=== PATIENT | male | born 1990 | race Caucasian/White ===

== ENCOUNTER 2016-05-22 00:27 | Emergency (ER) | payer SELFPAY ==
[~2016-05-22] VITALS: Ht 182.9 cm; Wt 97.5 kg
[~2016-05-22 00:27] MED LIST: CHLO200T OR; CHLO25CA2 OR; DEPA500T2 OR; EFFE150C OR; NICO21DI4 TD
[2016-05-22 00:44] VITALS: BP 132/79
== END 2016-05-22 06:02 | disposition left against medical advice (07) ==
LOC: M ED 05:52
DX: M54.9 Dorsalgia, unspecified (principal); Z53.29 Procedure and treatment not carried out because of patient's decision for other reasons

== ENCOUNTER → 2017-01-06 | Outpatient (CLI) | payer OTHER ==
--- NOTE | 2017-01-28 01:29 | ECWPNPC ---
PATIENT NAME: NICOLE RAI : 1990 GENDER: MALE VISIT DATE: 01/06/2017 DISCHARGE DATE: 01/06/17 1647 VISIT LOCKED DATE TIME: PHYSICIAN: CURTIS CAVAZOS RESOURCE: CURTIS CAVAZOS REASON FOR APPOINTMENT 1. NECK AND BACK HISTORY OF PRESENT ILLNESS NEW PATIENT CONSULT: WHEN DID YOUR PAIN FIRST START? . BRIEFLY DESCRIBE HOW YOUR PAIN STARTED? . HOW DOES YOUR PAIN CHANGE WITH TIME? . DOES YOUR PAIN AWAKEN YOU FROM SLEEP? . HOW MANY HOURS OF SLEEP DO YOU NORMALLY GET? . ANY DIAGNOSTIC TESTING? . FACILITY WHERE TESTS WERE DONE? ____. PAIN TREATMENT TREATMENT YES CANCER HAVE YOU EVER HAD ANY TYPE OF CANCER?NO NO. 26 YEAR OLD MALE PATIENT WITH HISTORY OF CHRONIC LOW BACK PAIN. PATIENT DESCRIBES THE PAIN SHARP, STABBING, AND HAVING IT ALL THE TIME WITH A PAIN SCORE OF 9/10. PATIENT REPORTS HIS PAIN STARTED IN 2015 WHEN HE BENT OVER AND WAS UNABLE TO STAND UP. AT THIS TIME THE PATIENT HAS NOT FOUND ANYTHING THAT RELIEVES THE PAIN. PATIENT STATES THAT WALKING AND BENDING INCREASES HIS PAIN THE MOST AT THIS TIME. PATIENT HAS TRIED INJECTIONS WELL AT PHYSICAL THERAPY AND STATES THAT IS DOES NOT AID IN PAIN RELIEF AT THIS TIME. PATIENT DENIES UNEXPLAINABLE WEIGHT LOSS, FEVER, CHILLS, NEW CHANGES ON HIS URINARY OR BOWEL CONTROL. PAIN SCREENING: PATIENT HAS A COMPLAINT OF ACUTE OR CHRONIC PAIN :YES FALL RISK SCREENING: SCREENING :NO FALLS IN THE PAST YEAR KUMAR INVENTORY: QUESTIONNAIRE ASSESSEDTBD SCORE VALUE CALCULATED TBD CURRENT MEDICATIONS TAKING CYMBALTA 30 MG CAPSULE DELAYED RELEASE PARTICLES 1 CAPSULE ORALLY DAILY TAKING SINGULAIR 10 MG TABLET 1 TABLET IN THE EVENING ORALLY ONCE A DAY TAKING PRAZOSIN HCL 1 MG CAPSULE 1 CAPSULE AT BEDTIME ORALLY ONCE A DAY TAKING LORATADINE 10 MG TABLET 1 TABLET ORALLY ONCE A DAY TAKING UNISOM SLEEPGELS 50 MG CAPSULE 1 CAPSULE AT BEDTIME NEEDED ORALLY ONCE A DAY MEDICATION LIST REVIEWED AND RECONCILED WITH THE PATIENT PAST MEDICAL HISTORY KIDNEY STONE BACK PAIN HX HIGH CHOLESTEROL CONTROLLED WITH DIET ALLERGIES PENICILLIN (FOR ALLERGIES USE ONLY): SWELLING/HIVES: SIDE EFFECTS RISPERDAL: SEIZURE: ALLERGY PAXIL: SEIZURE: ALLERGY SURGICAL HISTORY [facility]-( KIDNEY STONES) 2010/ FAMILY HISTORY FATHER: ALIVE, KIDNEY STONES, DIAGNOSED WITH HEART DISEASE MOTHER: ALIVE 1 BROTHER(S) , 1 SISTER(S) - HEALTHY. 1DAUGHTER(S) - HEALTHY. SISTER HAS ITP (BLOOD DISORDER). SOCIAL HISTORY GENERAL: TOBACCO USE ARE YOU A:CURRENT SMOKER ARE YOU INTERESTED IN QUITTING?THINKING ABOUT QUITTING DISCUSSING WITH PRIMARY MD COUNSELED THE PATIENT ON SMOKING CESSATION, EDUCATION [id number]/2017 PATIENT COUNSELED ON THE DANGERS OF TOBACCO USE AND URGED TO QUIT:01/06/2017 ALCOHOL SCREENING POINTS1 INTERPRETATIONNEGATIVE RECREATIONAL DRUG USE DRUG USE?NO OCCUPATION: [employer]. DIET: REGULAR. MARITAL STATUS: SINGLE. SIKHISM [id number] NONE LANGUAGE LANGUAGES SPOKEN:IRAQI LEARNING BARRIERS / SPECIAL NEEDS BARRIERS TO LEARNING?NO HEARING IMPAIRED?NO VISION IMPAIRED?NO COGNITIVELY IMPAIRED?NO READINESS TO LEARN?YES LEARNING PREFERENCES?NO LEARNING CAPABILITIES PRESENT?YES EMOTIONAL BARRIERS?NO SPECIAL DEVICES?NO NOTE KEEPER NEEDED?NO PAIN CLINIC PFS, CLERGY, PUBLIC HEALTH REFERRALS PFS REFERRAL NEEDED?NO CLERGY REFERRAL NEEDED?NO PUBLIC HEALTH REFERRAL NEEDED?NO WAS THE PROVIDER NOTIFIED OF ANY PERTINENT INFO?NO HAS THE PATIENT BEEN EDUCATED REGARDING HIS/HER PLAN OF CARE?YES HAS THE PATIENT BEEN EDUCATED REGARDING PAIN, THE RISK FOR PAIN, THE IMPORTANCE OF EFFECTIVE PAIN MANAGEMENT, AND THE PAIN ASSESSMENT PROCESS?YES PATIENT: ____. ADVANCE DIRECTIVES HEALTH CARE PROXY?NO WOULD YOU LIKE MORE INFORMATION?NO DO YOU HAVE A DNR?NO WOULD YOU LIKE MORE INFORMATION?NO LIVING WILL?NO WOULD YOU LIKE MORE INFORMATION?NO POWER OF COMMUNITY HEALTH NURSE?NO WOULD YOU LIKE MORE INFORMATION?NO REVIEW OF SYSTEMS REVIEWED BY: PROVIDER: CURTIS CAVAZOS MD . CONSTITUTIONAL: ANY CHANGE IN YOUR MEDICAL CONDITION? NO . CHILLS NO . FEVER NO . INFECTION: DO YOU HAVE NEW INFECTIONS? NO . DO YOU HAVE HISTORY OF MRSA? NO . MUSCULOSKELETAL: ANY NEW PATTERNS OF PAIN OR NUMBNESS? NO . SYTEMIC LUPUS NO . GASTROENTEROLOGY: ANY NEW CHANGE IN BOWEL CONTROL? NO . BARRETTS ESOPHAGUS NO . CIRRHOSIS NO . HEPATITIS NO . LIVER FAILURE NO . ACID REFLUX NO . UNEXPLAINED WEIGHT LOSS NO . GENITOURINARY: ANY NEW CHANGE IN BLADDER CONTROL? NO . IS THERE A CHANCE YOU COULD BE ? NO . HEMATOLOGY/LYMPH: DO YOU TAKE ANY BLOOD THINNERS? (FOR EXAMPLE- COUMADIN, PLAVIX, AGGRENOX, PLATEL, PRADAXA, OR XARELTO) NO . WHEN WAS YOUR LAST DOSE? DATE: TIME: . LOW PLATELET COUNT NO . SICKLE CELL DISEASE NO . VON WILLIEBRANDS NO . FACTOR V LEIDEN NO . THALLASEMIA NO . ANEMIA NO . EASY BRUISING NO . NEUROLOGY: HAVE YOU FALLEN IN THE PAST 6 MONTHS? NO . ANY NEW EXTREMITY NUMBNESS OR WEAKNESS? NO . HEAD INJURY NO . DEMENTIA NO . CEREBRAL PALSY NO . MULTIPLE SCLEROSIS NO . DIZZINESS NO . HEADACHE NO . STROKES NO . VERTIGO NO . CARDIOLOGY: DO YOU HAVE A PACEMAKER OR DEFIBRILLATOR? NO . ANGINA NO . HEART ATTACK NO . HEART SURGERY NO . CONGESTIVE HEART FAILURE/FLUID OVERLOAD NO . CHEST PAIN NO . HIGH BLOOD PRESSURE NO . IRREGULAR HEART BEAT NO . RESPIRATORY: HAVE YOU BEEN SICK IN THE PAST WEEK? NO . FEVER NO . FLU LIKE SYMPTOMS? NO . CPAP NO . BYPAP NO . ASTHMA NO . EMPHYSEMA NO . CHRONIC LUNG DISEASES NO . SHORTNESS OF BREATH ON EXERTION NO . DO YOU USE ANY TYPE OF TOBACCO (SMOKE, SMOKELESS, CHEW)? NO . COUGH NO . SNORING NO . INTEGUMENTARY: DO YOU HAVE ANY RASHES OR OPEN SORES? NO . ALLERGIC/IMMUNO: ARE YOU ALLERGIC TO SHELLFISH OR IV DYE? NO . ANY NEW ALLERGIES? NO . PSYCHIATRIC: DO YOU HAVE THOUGHTS OF HURTING YOURSELF OR SOMEONE ELSE? NO . ARE YOU ABUSED, NEGLECTED, OR IN AN UNSAFE ENVIRONMENT? NO . ENDOCRINOLOGY: ARE YOU DIABETIC? NO . THYROID DISORDER NO . OTHER: DO YOU NEED ANY PRESCRIPTIONS? NO . IF YES, PLEASE LIST: ____ . ANY NEW PROBLEMS WITH YOUR MEDICATIONS? NO . WHEN DID YOU LAST EAT? ____ . WHEN DID YOU LAST DRINK? ____ . WHAT DID YOU LAST DRINK? ____ . NAME OF PERSON DRIVING YOU HOME? ____ . DO YOU HAVE ANY OTHER QUESTIONS OR CONCERNS NO . VITAL SIGNS WT 214.2 LBS, HT 6', BMI 29.05 INDEX, BP 134/78 MM HG, HR 91 /MIN, RR 18 /MIN, TEMP 98.1 F, OXYGEN SAT % 99%, SAFE IN ENV? (Y/N) YES, NA INITIALS SC 14:07, REVIEWED BY: JUNI. EXAMINATION : PATIENT IS ALERT O X 3 AND COOPERATIVE. PATIENT WALKS IN FLEXED POSITION. TENDERNESS IN THE LOWER BACK AND PARASPINAL MUSCLE GROUP. BANDS OF TISSUE, RESTRICTION OF MOVEMENT AND PRESENCE OF TRIGGER POINTS IN THE LOWER BACK AREA. MRI OF THE LUMBAR SPINE DONE ON 05/09/2015 SHOWS DISC BULGES AT L2-L3 AND L5-S1. LUNGS CLEAR, TO AUSCULTATION. HEART- NO MURMURS OR GALLOPS; FACIAL CRANIAL NERVES ARE GROSSLY NORMAL. GOOD SYMMETRY OF FACIAL MUSCLE MOVEMENT. NORMAL VISUAL LOPEZ. ABDOMINAL SOFT AND DEPRESSIBLE. ASSESSMENTS INTERVERTEBRAL DISC DISORDER WITH RADICULOPATHY OF LUMBAR REGION - M51.16 (PRIMARY) INTERVERTEBRAL DISC DISORDER WITH RADICULOPATHY OF LUMBOSACRAL REGION - M51.17 TREATMENT INTERVERTEBRAL DISC DISORDER WITH RADICULOPATHY OF LUMBAR REGION NOTES: WE DISCUSSED SEVERAL ISSUES WITH MR. RAI'S PAIN MANAGEMENT CASE. AT THIS TIME I WOULD LIKE THE PATIENT TO START USING IBUPROFEN FOR THE INFLAMMATION AND TIZANIDINE FOR THE MUSCLE SPASMS AND TIGHTNESS. PATIENT WAS ADVISED TO USE THE IBUPROFEN WITH FOOD. MR. RAI WAS ADVISED TO STOP THE MEDICATIONS IF HE HAS ANY ADVERSE SIDE EFFECTS. DUE TO THE RADICULAR PAIN AND THE BULGING DISCS I WOULD LIKE THE PATIENT TO RECEIVE A LUMBAR EPIDURAL. WE DISCUSSED THE RISKS, BENENFITS, AND ALTNERATIVES OF THE INJECTION AND THE PATIENT WOULD LIKE TO PROCEED. INSTRUCTIONS WERE GIVEN, QUESTIONS WERE ANSWERED, PATIENT REPORTS UNDERSTANDING AND AGREES WITH THE PLAN. I, RYLEY ARMIJO, DOCUMENTED THE ABOVE INFORMATION ACTING A SCRIBE FOR DR. CAVAZOS. I HAVE REVIEWED THE ABOVE DOCUMENT, WRITTEN BY RYLEY MCDONALD AND I VERIFY THAT IT IS ACCURATE. DEAR DR. AMBRIZ:THANK YOU FOR YOUR KIND REFERRAL OF MR. RAI. IF YOU WANT TO DISCUSS HIS CASE WITH ME PLEASE CALL ME AT THE PAIN CENTER AT [phone]. SINCERELY,CURTIS CAVAZOS, [facility]. OTHERS START IBUPROFEN TABLET, 800 MG, 1 TABLET WITH FOOD OR MILK, ORALLY, EVERY 6 HOURS NEEDED FOR PAIN MDD3, 30 DAY(S), 90, REFILLS 1 START TIZANIDINE HCL TABLET, 2 MG, 1 TABLET NEEDED FOR SPAMSM AND PAIN, ORALLY, BEFORE BEDTIME MAY REPEAT IN 5 HRS MDD2, 30 DAY(S), 50, REFILLS 1 PROCEDURE CODES FA211 ESTABILISHED PATIENT [facility] G7463 DOC MEDS VERIFIED W/PT OR RE G8730 PAIN ASSESS POS TOOL F/U PLAN DOC DISPOSITION & COMMUNICATION FOLLOW UP LESI AFTER APPROVAL ELECTRONICALLY SIGNED BY CURTIS CAVAZOS MD ON 01/26/2017 AT 06:20 PM EST DISCLAIMER : THIS IS A VISIT SUMMARY EXTRACTED FROM THE [employer] CHART. IT IS NOT A COPY OF THE [employer] PROGRESS NOTE. MTDD
== END ==
LOC: M PAIN 14:00
PROVIDERS: ATTEND Anesthesiology
DX: M51.16 Intervertebral disc disorders with radiculopathy, lumbar region (principal); M51.17 Intervertebral disc disorders with radiculopathy, lumbosacral region; G89.29 Other chronic pain; Z79.899 Other long term (current) drug therapy; F17.210 Nicotine dependence, cigarettes, uncomplicated; Z88.0 Allergy status to penicillin; Z88.8 Allergy status to other drugs, medicaments and biological substances

== ENCOUNTER → 2017-02-10 | Outpatient (CLI) | payer OTHER | LOC: M PAIN 15:30 | DX: G89.29 Other chronic pain (principal); M51.16 Intervertebral disc disorders with radiculopathy, lumbar region; M51.17 Intervertebral disc disorders with radiculopathy, lumbosacral region; F17.210 Nicotine dependence, cigarettes, uncomplicated; Z88.0 Allergy status to penicillin; Z88.8 Allergy status to other drugs, medicaments and biological substances; Z79.899 Other long term (current) drug therapy | CPT/HCPCS: G0463 ==

== ENCOUNTER 2017-05-03 11:00 | Emergency (ER) | payer OTHER ==
[2017-05-03] MEDS: KETOROLAC 30 MG/ML VIAL (J1885) IV (11:37)
[2017-05-03] MEDS: NS 1,000 ML IV (11:37)
[2017-05-03 11:54] LABS: BASO % 0.3 % (0.0-1.0); EOS # 0.2 10^3/uL (0.0-0.50); HEMATOCRIT 47.8 % (42.0-52.0); IMMATURE GRANULOCYTE % 0.3 % (0-3.0); LYMPH # 2.6 10^3/uL (1.5-6.5); MEAN CORPUSCULAR HEMOGLOBIN 29.4 pg (27.0-33.0); MEAN CORPUSCULAR HGB CONC 33.5 g/dl (32.0-36.5); MEAN CORPUSCULAR VOLUME 87.9 fl (80.0-96.0); MONO # 0.9 10^3/uL (0.0-0.8); MONO % 9.9 % (0.0-5.0); NEUTROPHILS # 5.3 10^3/uL (1.8-7.7); NEUTROPHILS % 58.5 % (36.0-66.0); PLATELET COUNT, AUTOMATED 237 10^3/uL (150-450); RED BLOOD COUNT 5.44 10^6/uL (4.30-6.10); RED CELL DISTRIBUTION WIDTH 12.9 % (11.5-14.5); WHITE BLOOD COUNT 9.1 10^3/uL (4.0-10.0)
[2017-05-03 11:59] LABS: CALCIUM OXALATE CRYSTALS RFX SMALL; KETONE, URINE AUTO RFX NEGATIVE (NEGATIVE); LEUKOCYTE ESTERASE UR AUTO RFX NEGATIVE (NEGATIVE); MUCUS, URINE RFX SMALL (NEGATIVE); NITRITE, URINE AUTO RFX NEGATIVE (NEGATIVE); RBC, URINE AUTO RFX TNTC /HPF (0-3); SPECIFIC GRAVITY UR AUTO RFX 1.014 (1.002-1.035); SQUAM EPITHELIAL CELL UR AURFX 0 /HPF (0-6)
[2017-05-03 12:00] LABS: WBC, URINE AUTO RFX 11 /HPF (0-3)
[2017-05-03 12:22] LABS: ALBUMIN 4.4 GM/DL (3.2-5.2); ALBUMIN/GLOBULIN RATIO 1.19 (1.00-1.93); ALKALINE PHOSPHATASE 83 U/L (45-117); ALT/SGPT 59 U/L (12-78); ANION GAP 6 MEQ/L (8-16); AST/SGOT 24 U/L (7-37); BILIRUBIN,DIRECT 0.1 MG/DL (0.0-0.2); BILIRUBIN,TOTAL 0.6 MG/DL (0.2-1.0); BLOOD UREA NITROGEN 12 MG/DL (7-18); CALCIUM LEVEL 9.2 MG/DL (8.5-10.1); CARBON DIOXIDE LEVEL 29 MEQ/L (21-32); CHLORIDE LEVEL 108 MEQ/L (98-107); CREATININE FOR GFR 1.02 MG/DL (0.70-1.30); GLOMERULAR FILTRATION RATE > 60.0 (>60); GLUCOSE, FASTING 95 MG/DL (70-100); LIPASE 106 U/L (73-393); POTASSIUM SERUM 4.5 MEQ/L (3.5-5.1); SODIUM LEVEL 143 MEQ/L (136-145); TOTAL PROTEIN 8.1 GM/DL (6.4-8.2)
[2017-05-03] MEDS: TAMSULOSIN 0.4 MG CAP PO (12:31)
[2017-05-03] MEDS: ONDANSETRON 4MG/2ML VIAL (J2405) IV (12:31)
[2017-05-03] MEDS: MORPHINE 4 MG/ML 1ML VIAL (J2270) IV (12:31)
== END 2017-05-03 13:22 | disposition home or self-care (01) ==
LOC: M ED 11:00
DX: N20.1 Calculus of ureter (principal); F17.210 Nicotine dependence, cigarettes, uncomplicated; Z79.899 Other long term (current) drug therapy; Z87.442 Personal history of urinary calculi; Z98.890 Other specified postprocedural states; Z88.8 Allergy status to other drugs, medicaments and biological substances; Z88.0 Allergy status to penicillin
CPT/HCPCS: J2270

== ENCOUNTER → 2017-05-12 | Outpatient (REF) | payer OTHER ==
[2017-05-12 13:32] LABS: APPEARANCE, URINE CLEAR (CLEAR); BACTERIA, URINE AUTO NEGATIVE (NEGATIVE); BILIRUBIN, URINE AUTO NEGATIVE (NEGATIVE); BLOOD, URINE BLOOD 1+ (NEGATIVE); COLOR, URINE COLORLESS (YELLOW); GLUCOSE, URINE (UA) AUTO NEGATIVE (NEGATIVE); KETONE, URINE AUTO NEGATIVE (NEGATIVE); LEUKOCYTE ESTERASE, URINE AUTO NEGATIVE (NEGATIVE); MUCUS, URINE SMALL (NEGATIVE); NITRITE, URINE AUTO NEGATIVE (NEGATIVE); PROTEIN, URINE AUTO NEGATIVE (NEGATIVE); RBC, URINE AUTO 3 /HPF (0-3); SPECIFIC GRAVITY URINE AUTO 1.011 (1.002-1.035); SQUAMOUS EPITHELIAL CELL UR AU 0 /HPF (0-6); UROBILINOGEN, URINE AUTO 0.2 mg/dL (0.0-2.0); WBC, URINE AUTO 1 /HPF (0-3)
== END ==
LOC: M SMT 13:12
DX: N13.2 Hydronephrosis with renal and ureteral calculous obstruction (principal)

== ENCOUNTER → 2017-05-29 | Outpatient (CLI) | payer OTHER | LOC: M RAD 15:08 | DX: N20.1 Calculus of ureter (principal); N13.30 Unspecified hydronephrosis ==

== ENCOUNTER → 2017-09-09 | Outpatient (CLI) | payer OTHER ==
[2017-09-09 14:59] LABS: HEMATOCRIT 46.5 % (42.0-52.0); HEMOGLOBIN 15.6 g/dl (13.5-17.5); MEAN CORPUSCULAR HEMOGLOBIN 29.3 pg (27.0-33.0); MEAN CORPUSCULAR HGB CONC 33.5 g/dl (32.0-36.5); MEAN CORPUSCULAR VOLUME 87.2 fl (80.0-96.0); PLATELET COUNT, AUTOMATED 228 10^3/uL (150-450); RED BLOOD COUNT 5.33 10^6/uL (4.30-6.10); WHITE BLOOD COUNT 8.4 10^3/uL (4.0-10.0)
[2017-09-09 15:44] LABS: ALBUMIN 3.7 GM/DL (3.2-5.2); ALBUMIN/GLOBULIN RATIO 1.12 (1.00-1.93); ALKALINE PHOSPHATASE 78 U/L (45-117); ALT/SGPT 42 U/L (12-78); ANION GAP 10 MEQ/L (8-16); AST/SGOT 20 U/L (7-37); BILIRUBIN,TOTAL 0.4 MG/DL (0.2-1.0); BLOOD UREA NITROGEN 11 MG/DL (7-18); CALCIUM LEVEL 8.6 MG/DL (8.5-10.1); CARBON DIOXIDE LEVEL 25 MEQ/L (21-32); CHLORIDE LEVEL 109 MEQ/L (98-107); CHOLESTEROL LEVEL 187 MG/DL (<200); CHOLESTEROL RISK RATIO 6.233 (<5); CREATININE FOR GFR 1.08 MG/DL (0.70-1.30); GLOMERULAR FILTRATION RATE > 60.0 (>60); GLUCOSE, FASTING 100 MG/DL (70-100); HDL CHOLESTEROL 30 MG/DL (>40); NON-HDL-C 157 MG/DL; POTASSIUM SERUM 4.4 MEQ/L (3.5-5.1); SODIUM LEVEL 144 MEQ/L (136-145); THYROID STIMULATING HORMONE 0.678 uIU/ML (0.358-3.740); TRIGLYCERIDES LEVEL 437 MG/DL (<150)
== END ==
LOC: M LAB 14:15
DX: Z82.49 Family history of ischemic heart disease and other diseases of the circulatory system (principal)

== ENCOUNTER → 2018-03-30 | Outpatient (REF) | payer OTHER ==
[~2018-03-30] MED LIST changes: +FLOM0.4C39 PO; +PERC5TAB12 PO; +PRAZ1CAP; +SERT25TA88; +TRAZ-160
[2018-03-30 14:54] LABS: HEMOGLOBIN A1c 5.9 %
== END ==
LOC: M SFHCPLAZ 11:20
PROVIDERS: ATTEND Nurse Practitioner Adult Health
DX: Z83.3 Family history of diabetes mellitus (principal)

== ENCOUNTER → 2018-05-26 | Outpatient (REF) | payer OTHER | LOC: M SMT 13:09 | PROVIDERS: ATTEND Urology | DX: Z30.09 Encounter for other general counseling and advice on contraception (principal) ==

== ENCOUNTER → 2018-06-09 | Outpatient (CLI) | payer OTHER ==
--- NOTE | 2018-06-09 19:43 | REP ---
Ultrasound: The patient is 2 weeks post mastectomy with palpable lumps at both incision sites mildly tender. The The right testis measures 4.7 by 2.4 x 3 x 1 cm. Left testis measures 4.7 x 2.3 x 2.8 cm. The testes are normal size. There are no testicular masses. With Doppler ultrasound there is vascular flow in both testes. The pulsed Doppler image of the left testis was not saved because of technologist error, however, the technologist indicates that at there was normal Doppler color flow in the left testis. The right epididymal head measures 8.7 mm and the left epididymal head measures 7.6 mm. Next line there is a 1 mm cyst in the right epididymal head. There are multiple left epididymal head cysts, the largest measuring 5 mm. There are small bilateral hydroceles. The there is a surgical clip in each verna scrotum at the the operative sites. There is soft tissue edema adjacent to the surgical clips. Additionally, there is a hypoechoic nodule adjacent to each surgical clip, likely granulation tissue or clot. On the right, this nodule measures 4.7 x 5.0 x 3.8 mm. On the left, this nodule measures 11.3 x 7.6 x 13.3 mm. There are no focal fluid collections adjacent to the surgical clips that would indicate abscess or hematoma. Within the left inguinal canal there is a cyst measuring 8.5 x 3.7 x 4.8 mm. Impression: There is soft tissue edema accompanied by clot versus granulation tissue adjacent to each surgical clip. There is no fluid collection adjacent to the the surgical clips to suggest abscess or hematoma. There is a cyst in the left inguinal canal as described. Otherwise, essentially negative scrotal ultrasound. Electronically Signed by Jordi White MD 06/09/2018 07:35 P
== END ==
LOC: M RAD 16:03
PROVIDERS: ATTEND Nurse Practitioner Family
DX: N44.2 Benign cyst of testis (principal); N50.89 Other specified disorders of the male genital organs; Z98.52 Vasectomy status

== ENCOUNTER → 2018-07-26 | Outpatient (REF) | payer OTHER ==
[~2018-07-26] MED LIST changes: -TRAZ-160; +TRAZ-252
[2018-07-26 11:45] LABS: SEMEN APPEARANCE OPAQUE (OPAQUE); SEMEN VISCOSITY LIQUID (LIQUID); SEMEN VOLUME 3.5 ml (2.0-5.0)
[2018-07-26 11:46] LABS: SEMEN pH 8.5 (7.0-8.0); WBC CONCENTRATION <=1 M/ml (<=1 M/ml)
== END ==
LOC: M SMT 11:23
PROVIDERS: ATTEND Urology
DX: Z30.09 Encounter for other general counseling and advice on contraception (principal)

== ENCOUNTER 2018-10-11 07:35 | Day surgery (SDC) | payer OTHER ==
[~2018-10-11] VITALS: Ht 182.9 cm; Wt 80.3 kg
[~2018-10-11 07:35] MED LIST changes: +LORA-243 PO; +METHYLENE BLUE 0.5% (5MG/ML) 10 ML AMP (PROVAYBLUE)(Q9968 PER 1MG) As Ordered ONE; +MONT10TA2 PO; +OMEP40CA2 PO; +OXYMETAZOLINE NASAL SPRAY (AFRIN) As Ordered ONE; -PRAZ1CAP; +PRAZ1CAP PO; -SERT25TA88; +SERT25TA88 PO; -TRAZ-252; +TRAZ-252 PO
[2018-10-11] MEDS ORDERED: ONDANSETRON 4MG/2ML VIAL (J2405) As Ordered ONE (08:32)
[2018-10-11] MEDS ORDERED: PROPOFOL 200 MG/20 ML VIAL As Ordered ONE (08:32)
[2018-10-11] MEDS ORDERED: dexameTHASONE 4 MG/ML 1ML VIAL (J1100) As Ordered ONE (08:32)
[2018-10-11] MEDS ORDERED: ROCURONIUM BROMIDE 50 MG/5 ML VIAL As Ordered ONE (08:32)
[2018-10-11] MEDS ORDERED: fentaNYL 250 MCG/5 ML INJECTION (J3010) As Ordered ONE (08:32)
[2018-10-11] MEDS ORDERED: MIDAZOLAM INJ 2 MG/2 ML VIAL (J2250) As Ordered ONE (08:33)
[2018-10-11] MEDS ORDERED: SEVOFLURANE INHAL SOLN 250 ML BTL As Ordered ONE (08:38)
[2018-10-11] MEDS: LIDOCAINE W/EPINEPHRINE 1% 20ML VIAL As Ordered ONE (09:06)
[2018-10-11] MEDS ORDERED: GLYCOPYRROLATE INJ 0.2 MG/ML 2 ML VIAL As Ordered ONE (09:12)
[2018-10-11] MEDS ORDERED: ACETAMINOPHEN 1000MG 100ML IV BTL (OFIRMEV) (J0131 PER 10MG) As Ordered ONE (09:12)
[2018-10-11] MEDS ORDERED: NEOSTIGMINE 10 MG/10 ML VIAL (J2710) As Ordered ONE (09:12)
[2018-10-11] MEDS ORDERED: LIDOCAINE W/EPINEPHRINE 1% 20ML VIAL As Ordered ONE (09:32)
[2018-10-11] MEDS ORDERED: MEPERIDINE 50 MG/ML 1ML VIAL (J2175) As Ordered ONE (09:51)
[2018-10-11] MEDS ORDERED: oxyCODONE 5MG TAB As Ordered ONE (10:24)
[2018-10-11] MEDS: oxyCODONE 5MG TAB PO PRN ×2 (10:25→10:55)
[2018-10-11] MEDS ORDERED: fentaNYL 100 MCG/2 ML INJECTION (J3010) IV PRN (10:30)
[2018-10-11] MEDS ORDERED: MEPERIDINE INJ 25 MG/ML VIAL (J2175) IV PRN (10:30)
[2018-10-11] MEDS ORDERED: METOCLOPRAMIDE INJ 10MG/2ML VIAL (J2765) IV PRN (10:30)
[2018-10-11] MEDS ORDERED: IBUPROFEN 800 MG TAB PO PRN (10:30)
[2018-10-11] MEDS ORDERED: ONDANSETRON 4MG/2ML VIAL (J2405) IV PRN (10:30)
[2018-10-11] MEDS ORDERED: LR 1,000 ML IV SCH (10:30)
[2018-10-11] MEDS ORDERED: PERCOCET 5MG/325MG TAB PO PRN (10:30)
[2018-10-11 10:38] VITALS: BP 131/74
--- NOTE | 2018-11-09 08:53 | RO ---
DATE OF PROCEDURE: 10/11/2018 PREOPERATIVE DIAGNOSES: Deviated septum. Chronic rhinitis. POSTOPERATIVE DIAGNOSES: Deviated septum. Chronic rhinitis. PROCEDURE: Septoplasty. Partial reduction inferior turbinates. SURGEON: Saad Jung MD STRIPPER OPAQUER: ANESTHESIA: INDICATIONS: This is a 27-year-old with a long history of nasal obstruction and congestion. PROCEDURE: Satisfactory general endotracheal anesthesia was administered. Pharyngeal pack placed. Nose prepared for surgery by placing cotton soaked pledgets with Afrin solution in the nasal cavity bilaterally. 1% Xylocaine with 1:100,000 epinephrine was injected into the nasal septum and inferior turbinates. A Juanjose incision was made on the left side of the nose. A mucoperichondrial flap and envelope was created on the left side of the nasal septum and carried down to the junction of the bony and cartilaginous septum. This was then with an elevator, and an envelope was then created on the right side of the septum. A Curtis scissors was used to make a cut high in the perpendicular plate in the midportion of the vomer, and a central segment of the bony septum was resected. Next, with the round knife on the [place] elevator, a strip of cartilage was resected from the floor of the nose, mobilizing the quadrilateral cartilage and creating a swinging door. Then, a central segment of cartilaginous septum was resected, preserving a 1 cm dorsal and caudal strut. Double-action rongeur was used to take down deflected portions of the perpendicular plate, as well. Finally, the maxillary crest spur was taken down after elevating mucoperiosteum off both sides of it with a chisel. A segment of the resected cartilage was morselized and placed back into the septal envelope. The incision was closed using an interrupted #5-0 chromic suture. Then, a #4-0 plain suture was placed in a [id number] fashion through the two leaves of mucoperichondrium to appose them. Next, the inferior turbinates were medially infractured. A #15 blade was used to make an incision on the anterior tip of the inferior turbinate. With a Dereck elevator, a mucoperiosteal tunnel was created on the medial side of the turbinate. Then, the microdebrider with a 2.9 mm blade was inserted into the tunnel, and the underlying turbinate bone was weakened and partially resected using the microdebrider. Then, the turbinate was laterally outfractured. The posteroinferior tip of the turbinate was then cauterized with suction cautery. Completing the surgery, Alcantara splints were placed into the nose and sewn to the columella with a #2-0 Prolene suture. The pharyngeal pack was removed and the throat was suctioned. The patient was then awakened, extubated, and sent to recovery in satisfactory condition. He will be discharged home on Tylox for pain, doxycycline 100 mg twice a day. He will be seen in the office in three days for splint removal.
== END 2018-10-11 11:02 | disposition home or self-care (01) ==
LOC: M SDC 07:35
PROVIDERS: ATTEND Specialist
DX: J34.2 Deviated nasal septum (principal); J31.0 Chronic rhinitis; F43.10 Post-traumatic stress disorder, unspecified; K21.9 Gastro-esophageal reflux disease without esophagitis; R06.83 Snoring; Z88.0 Allergy status to penicillin; Z88.8 Allergy status to other drugs, medicaments and biological substances; Z79.899 Other long term (current) drug therapy; Z72.0 Tobacco use; Z87.442 Personal history of urinary calculi
CPT/HCPCS: 30130; 30520; 88300; 88305; J0131; J1100; J2175; J2250; J2405; J2710; J3010; Q9968

== ENCOUNTER 2018-11-27 16:53 | Emergency (ER) | payer OTHER ==
[~2018-11-27] VITALS: Ht 182.9 cm; Wt 77.3 kg
[2018-11-27 16:53] VITALS: BP 137/69
[~2018-11-27 16:53] MED LIST changes: -METHYLENE BLUE 0.5% (5MG/ML) 10 ML AMP (PROVAYBLUE)(Q9968 PER 1MG) As Ordered ONE; -OXYMETAZOLINE NASAL SPRAY (AFRIN) As Ordered ONE
[2018-11-27] MEDS ORDERED: NABU-126 PO (16:59)
[2018-11-27] MEDS ORDERED: LIDO1PAD TOP (17:53)
[2018-11-27] MEDS ORDERED: PRED20TA PO (17:53)
[2018-11-27] MEDS ORDERED: ROBA750T4 PO (17:53)
[2018-11-27] MEDS ORDERED: diazePAM 10 MG TAB PO ONE (18:00)
[2018-11-27] MEDS ORDERED: predniSONE 20 MG TAB PO ONE (18:00)
== END 2018-11-27 18:13 | disposition home or self-care (01) ==
LOC: M ED 16:53
DX: M62.830 Muscle spasm of back (principal); G89.29 Other chronic pain; M54.5 Low back pain; K21.9 Gastro-esophageal reflux disease without esophagitis; Z87.442 Personal history of urinary calculi; F17.200 Nicotine dependence, unspecified, uncomplicated; Z79.899 Other long term (current) drug therapy; Z88.0 Allergy status to penicillin; Z88.8 Allergy status to other drugs, medicaments and biological substances

== ENCOUNTER 2019-07-15 12:00 | Emergency (ER) | payer OTHER ==
[~2019-07-15] VITALS: Ht 182.9 cm; Wt 81.8 kg
[~2019-07-15 12:00] MED LIST changes: +LIDO1PAD TOP; -MONT10TA2 PO; +MONT10TA4 PO; +NABU-126 PO; -OMEP40CA2 PO; +OMEP40CA97 PO; +PRED20TA PO; +ROBA750T4 PO; +SERT25TA21 PO; -SERT25TA88 PO
[2019-07-15] MEDS ORDERED: PRAZ2CAP (12:07)
[2019-07-15] MEDS ORDERED: NS 1,000 ML IV ONE (12:45)
[2019-07-15] MEDS ORDERED: KETOROLAC 30 MG/ML 1ML VIAL IV ONE (13:15)
[2019-07-15 13:26] LABS: BASO # 0.1 10^3/uL (0.0-0.2); BASO % 0.6 % (0.0-1.0); EOS # 0.2 10^3/uL (0.0-0.5); EOS % 2.1 % (0.0-3.0); HEMOGLOBIN 15.2 g/dl (13.5-17.5); LYMPH # 2.6 10^3/uL (1.5-5.0); MEAN CORPUSCULAR HEMOGLOBIN 29.1 pg (27.0-33.0); MEAN CORPUSCULAR HGB CONC 32.3 g/dl (32.0-36.5); MONO # 0.7 10^3/uL (0.0-0.8); MONO % 6.8 % (0.0-5.0); NEUTROPHILS # 6.8 10^3/uL (1.5-8.5); NEUTROPHILS % 65.1 % (36.0-66.0); PLATELET COUNT, AUTOMATED 207 10^3/uL (150-450); RED BLOOD COUNT 5.22 10^6/uL (4.30-6.10); WHITE BLOOD COUNT 10.4 10^3/uL (4.0-10.0)
[2019-07-15 13:41] LABS: BILIRUBIN,DIRECT 0.1 MG/DL (0.0-0.2); BILIRUBIN,TOTAL 0.3 MG/DL (0.2-1.0); TOTAL PROTEIN 7.4 GM/DL (6.4-8.2)
[2019-07-15] MEDS ORDERED: MORPHINE 4 MG/ML 1ML VIAL/SYRINGE (J2270) IV ONE (14:00)
[2019-07-15] MEDS ORDERED: ONDANSETRON 4MG/2ML VIAL IV ONE (14:00)
--- NOTE | 2019-07-15 14:10 | REP ---
CT ABDOMEN/PELVIS WITHOUT CONTRAST: CT abdomen/pelvis performed without oral or IV contrast. Sagittal and coronal reconstruction images are performed. Comparison made with prior studies of 05/29/2017 and 05/03/2017. The visualized lung bases demonstrate a subpleural 6 mm nodule in the left lower lobe laterally which is unchanged since prior studies. The liver, spleen, adrenals, and pancreas are grossly unremarkable. Kidneys demonstrate no intrarenal calculus or hydronephrosis. Ureters are not dilated. However, there is a 4 mm calculus in the distal left ureter. No bladder calculus is seen. There is no abdominal aortic aneurysm. There is no adenopathy. There is no free air or free fluid. There is no bowel thickening. The appendix is normal. No gross pelvic abnormality is seen. IMPRESSION: There is a 4 mm calculus in the distal left ureter. No other renal, ureteral, or bladder calculi seen. No hydroureteronephrosis. Electronically Signed by Jordi Covington MD 07/15/2019 03:54 P
[2019-07-15] MEDS ORDERED: FLOM0.4C39 PO (14:28)
[2019-07-15] MEDS ORDERED: NORC1TAB7 PO (14:28)
[2019-07-15 15:13] VITALS: BP 128/86
== END 2019-07-15 15:15 | disposition home or self-care (01) ==
LOC: M ED 12:00
DX: N20.1 Calculus of ureter (principal); N23 Unspecified renal colic; R31.9 Hematuria, unspecified; F17.218 Nicotine dependence, cigarettes, with other nicotine-induced disorders; F12.10 Cannabis abuse, uncomplicated; Z88.0 Allergy status to penicillin; Z88.8 Allergy status to other drugs, medicaments and biological substances
CPT/HCPCS: 36415; 74176; 80047; 80076; 81001; 83690; 85025; 96361; 96374; 96375; 99284; J1885; J2270; J2405

== ENCOUNTER → 2022-08-14 | Outpatient (REF) | payer OTHER, BC ==
[~2022-08-14] MED LIST changes: -MONT10TA4 PO; +MONT10TA97 PO; -NABU-126 PO; +NABU-71 PO; +NORC1TAB7 PO; +OMEP40CA4 PO; -OMEP40CA97 PO; +PRAZ2CAP
[2022-08-14 18:25] LABS: ALBUMIN 4.2 G/DL (3.2-5.2); ALKALINE PHOSPHATASE 78 U/L (46-116); ALT/SGPT 21 U/L (7.0-40); AST/SGOT 16 U/L (<34); BILIRUBIN,TOTAL 0.3 MG/DL (0.3-1.2); BLOOD UREA NITROGEN 18 MG/DL (9-23); CALCIUM LEVEL 9.6 MG/DL (8.5-10.1); CARBON DIOXIDE LEVEL 30 MMOL/L (20-31); CHLORIDE LEVEL 106 MMOL/L (98-107); CREATININE FOR GFR 1.33 MG/DL (0.70-1.30); GLOMERULAR FILTRATION RATE > 60.0 (>60); GLUCOSE, FASTING 68 MG/DL (60-100); POTASSIUM SERUM 5.1 MMOL/L (3.5-5.1); SODIUM LEVEL 140 MMOL/L (136-145)
== END ==
LOC: M PLALAB 17:38
PROVIDERS: ATTEND Nurse Practitioner Adult Health
DX: Z00.00 Encounter for general adult medical examination without abnormal findings (principal)

== ENCOUNTER → 2022-10-03 | Outpatient (CLI) | payer OTHER ==
[~2022-10-03] MED LIST changes: +ISOVUE-370 76% 100ML VIAL As Ordered ONE
== END ==
LOC: M RAD 17:11
PROVIDERS: ATTEND Nurse Practitioner Adult Health
DX: R91.1 Solitary pulmonary nodule (principal); J98.6 Disorders of diaphragm; R59.0 Localized enlarged lymph nodes
CPT/HCPCS: 71260; Q9967

== ENCOUNTER → 2023-06-08 | Outpatient (CLI) | payer OTHER ==
[~2023-06-08] MED LIST changes: -ISOVUE-370 76% 100ML VIAL As Ordered ONE
== END ==
LOC: M PLARAD 14:53
PROVIDERS: ATTEND Nurse Practitioner Adult Health
DX: R91.1 Solitary pulmonary nodule (principal)
CPT/HCPCS: 78815; A9552

== ENCOUNTER 2023-08-19 07:03 | Day surgery (SDC) | payer OTHER ==
[~2023-08-19] VITALS: Ht 182.9 cm; Wt 84.8 kg
[~2023-08-19 07:03] MED LIST changes: +ALBU8.5H; +BRIN1TAB3 PO; +CYCL-707 PO; +PROP10TA56 PO
[2023-08-19] MEDS ORDERED: LR 1,000 ML IV SCH (07:30)
[2023-08-19] MEDS ORDERED: fentaNYL 100 MCG/2 ML INJECTION As Ordered ONE (07:52)
[2023-08-19] MEDS ORDERED: MIDAZOLAM INJ 2MG/2ML VIAL As Ordered ONE (07:52)
[2023-08-19] MEDS ORDERED: ROCURONIUM BROMIDE 50MG/5ML VIAL As Ordered ONE (07:54)
[2023-08-19] MEDS ORDERED: LIDOCAINE 2% 100MG/5ML SDV (FOR ANES.) As Ordered ONE (07:56)
[2023-08-19] MEDS: LIDOCAINE PRES-FREE 2% 10ML AMP INH ONE (08:17)
[2023-08-19] MEDS: ALBUTEROL SULFATE 2.5MG/0.5ML INH NEB SOLN INH ONE (08:17)
[2023-08-19] MEDS ORDERED: dexmedeTOMIDine (4MCG/ML)200MCG/50ML BTL (PRECEDEX) As Ordered ONE (08:41)
[2023-08-19] MEDS: CETACAINE SPRAY 5GM As Ordered ONE (08:49)
[2023-08-19] MEDS ORDERED: ONDANSETRON 4MG 2ML VIAL As Ordered ONE (08:56)
[2023-08-19] MEDS ORDERED: propofoL 200 MG/20 ML VIAL As Ordered ONE (08:56)
[2023-08-19] MEDS ORDERED: SUGAMMADEX SODIUM 500 MG/5 ML VIAL (BRIDION) As Ordered ONE (08:57)
[2023-08-19] MEDS: EPINEPHrine 1MG/10ML SYRINGE 1.5IN As Ordered ONE (09:24)
[2023-08-19] MEDS: THROMBIN 5,000 UNITS VIAL As Ordered ONE (09:25)
[2023-08-19] MEDS ORDERED: fentaNYL 100 MCG/2 ML INJECTION IV PRN (09:30)
[2023-08-19] MEDS ORDERED: ONDANSETRON 4MG 2ML VIAL IV PRN (09:30)
[2023-08-19] MEDS: oxyCODONE 5MG TAB PO PRN (10:05)
[2023-08-19 10:30] VITALS: BP 136/77; TEMP 98.2; O2SAT 99
== END 2023-08-19 10:45 | disposition home or self-care (01) ==
LOC: M SDC 07:03
PROVIDERS: ATTEND Internal Medicine Critical Care Medicine
DX: R59.0 Localized enlarged lymph nodes (principal); J44.9 Chronic obstructive pulmonary disease, unspecified; G40.909 Epilepsy, unspecified, not intractable, without status epilepticus; Z87.891 Personal history of nicotine dependence; F43.10 Post-traumatic stress disorder, unspecified; Z88.8 Allergy status to other drugs, medicaments and biological substances; F41.9 Anxiety disorder, unspecified; Z88.0 Allergy status to penicillin; Z79.51 Long term (current) use of inhaled steroids; Z79.899 Other long term (current) drug therapy
CPT/HCPCS: 31622; 31654; 71045; 88173; 88305; J1100; J2250; J2405; J3010

== ENCOUNTER → 2023-11-12 | Outpatient (CLI) | payer OTHER ==
[2023-11-12 16:29] LABS: HEMATOCRIT 45.7 % (42.0-52.0); HEMOGLOBIN 15.1 g/dl (13.5-17.5); MEAN CORPUSCULAR VOLUME 90.7 fl (80.0-96.0); PLATELET COUNT, AUTOMATED 226 10^3/uL (150-450); RED BLOOD COUNT 5.04 10^6/uL (4.30-6.10); WHITE BLOOD COUNT 9.8 10^3/uL (4.0-10.0)
[2023-11-12 16:54] LABS: ALKALINE PHOSPHATASE 86 U/L (46-116); ALT/SGPT 20 U/L (7.0-40); AST/SGOT 13 U/L (<34); BILIRUBIN,TOTAL 0.4 MG/DL (0.3-1.2); BLOOD UREA NITROGEN 13 MG/DL (9-23); CARBON DIOXIDE LEVEL 30 MMOL/L (20-31); CHLORIDE LEVEL 110 MMOL/L (98-107); CREATININE FOR GFR 1.16 MG/DL (0.70-1.30); GLOMERULAR FILTRATION RATE > 60.0 (>60); GLUCOSE, FASTING 85 MG/DL (60-100); POTASSIUM SERUM 4.5 MMOL/L (3.5-5.1); SODIUM LEVEL 143 MMOL/L (136-145); TOTAL PROTEIN 7.3 G/DL (5.7-8.2)
[2023-11-12 17:26] LABS: HEMOGLOBIN A1c 5.3 % (4.0-6.0)
== END ==
LOC: M LAB 15:54
PROVIDERS: ATTEND Nurse Practitioner Adult Health
DX: M51.16 Intervertebral disc disorders with radiculopathy, lumbar region (principal); Z83.3 Family history of diabetes mellitus; E16.2 Hypoglycemia, unspecified; R91.1 Solitary pulmonary nodule; L30.9 Dermatitis, unspecified; F43.10 Post-traumatic stress disorder, unspecified; Z72.0 Tobacco use

== ENCOUNTER → 2023-12-31 | Outpatient (CLI) | payer OTHER | LOC: M RAD 17:17 | PROVIDERS: ATTEND Internal Medicine Critical Care Medicine | DX: R91.8 Other nonspecific abnormal finding of lung field (principal) ==

== ENCOUNTER → 2024-04-19 | Outpatient (REF) | payer OTHER | LOC: M SFHCPLAZ 13:29 | PROVIDERS: ATTEND Physician Assistant Medical | DX: J06.9 Acute upper respiratory infection, unspecified (principal) ==

== ENCOUNTER → 2024-05-02 | Outpatient (CLI) | payer OTHER | LOC: M RAD 09:01 | PROVIDERS: ATTEND Nurse Practitioner Family | DX: M54.16 Radiculopathy, lumbar region (principal); M43.06 Spondylolysis, lumbar region; M51.27 Other intervertebral disc displacement, lumbosacral region; M48.061 Spinal stenosis, lumbar region without neurogenic claudication; M51.26 Other intervertebral disc displacement, lumbar region ==

== ENCOUNTER → 2024-10-27 | Outpatient (CLI) | payer OTHER ==
[~2024-10-27] MED LIST changes: -FLOM0.4C39 PO; +TAMS-18 PO
== END ==
LOC: M RAD 16:14
PROVIDERS: ATTEND Internal Medicine Critical Care Medicine
DX: R91.8 Other nonspecific abnormal finding of lung field (principal)